=== PATIENT | female | born 1960 | race Two or more races ===

== ENCOUNTER 2018-05-11 07:10 | Day surgery (SDC) | payer OTHER ==
[~2018-05-11 07:10] MED LIST: ACTONEL150 MG PO; ALTACE5 MG PO; CATAFLAM50 MG PO; CIPRO500 MG PO; DICY20TA PO; LEVSIN/SL0.125 MG PO; MACROBID 100 M100 MG PO; MICARDIS80 MG PO; MSIR15 MG PO; PROTONIX20 MG; TOPROL XL50 M1 PO; VANCOCIN ORAL SUSP. PO; VYTORIN 10-40 M1 TAB PO; ZANTAC300 MG
== END 2018-05-11 12:40 | disposition home or self-care (01) ==
LOC: AMB-ENDOS 07:10
DX: D12.0 Benign neoplasm of cecum (principal); D12.2 Benign neoplasm of ascending colon; D12.3 Benign neoplasm of transverse colon; K62.1 Rectal polyp

== ENCOUNTER 2018-09-12 17:38 | Emergency (ER) | payer OTHER ==
[~2018-09-12] VITALS: Ht 165.1 cm; Wt 64.4 kg
[2018-09-12] MEDS ORDERED: CARDIZEM CD240 MG (17:51)
== END 2018-09-12 23:16 | disposition home or self-care (01) ==
LOC: ER 17:38
DX: K57.90 Diverticulosis of intestine, part unspecified, without perforation or abscess without bleeding (principal)

== ENCOUNTER → 2022-04-12 | Outpatient (CLI) | payer OTHER ==
[~2022-04-12] MED LIST changes: +CARDIZEM CD240 MG
== END | disposition home or self-care (01) ==
LOC: SONOGRAMA 08:47
PROVIDERS: ATTEND Pathology Anatomic Pathology & Clinical Pathology
DX: D34 Benign neoplasm of thyroid gland (principal); E04.9 Nontoxic goiter, unspecified; E04.1 Nontoxic single thyroid nodule

== ENCOUNTER 2022-10-13 05:25 | Day surgery (SDC) | payer OTHER ==
[~2022-10-13] VITALS: Ht 165.1 cm; Wt 63.5 kg
== END 2022-10-13 10:30 | disposition home or self-care (01) ==
LOC: CIR.AMB 05:25
PROVIDERS: ATTEND Surgery Surgery of the Hand
DX: D21.21 Benign neoplasm of connective and other soft tissue of right lower limb, including hip (principal); Z20.822 Contact with and (suspected) exposure to COVID-19

== ENCOUNTER 2025-01-31 08:27 | Outpatient (CLI) | payer OTHER | END 2025-01-31 08:29 | disposition home or self-care (01) | LOC: SONOGRAMA 08:27 | PROVIDERS: ATTEND Pathology Anatomic Pathology & Clinical Pathology | DX: D34 Benign neoplasm of thyroid gland (principal); E07.89 Other specified disorders of thyroid; E04.1 Nontoxic single thyroid nodule ==